=== PATIENT | male | born 1975 | race Caucasian/White ===

== ENCOUNTER 2023-06-09 15:09 | Emergency (ER) | payer BC, OTHER ==
[~2023-06-09] VITALS: Ht 167.6 cm; Wt 90.9 kg
[2023-06-09 15:37] LABS: Basophils # (auto) 0.1 10 ^3/uL (0-0.2); Basophils % (auto) 0.8 % (0.0-2.0); Eosinophils # (auto) 0.1 10 ^3/uL (0-0.8); Hematocrit 51.5 % (41.0-53.0); Hemoglobin 17.2 g/dL (13.5-17.5); Lymphocytes # (auto) 1.8 10 ^3/uL (0.4-5.4); Lymphocytes % (auto) 26.7 % (10.0-50.0); Mean Corpuscular Hgb Conc. 33.4 g/dL (32.0-36.0); Monocytes # (auto) 0.8 10 ^3/uL (0-1.3); Monocytes % (auto) 12.5 % (0.0-12.0); Nucleated Red Blood Cells % 0.3 %; Red Blood Cells 5.92 10^6/uL (4.5-5.90); Red Cell Distribution Width 14.9 % (11.8-14.3); White Blood Cell 6.7 10^3/uL (4.4-10.8)
[2023-06-09 15:46] LABS: Chloride 104 mmol/L (98-107); Potassium 2.9 mmol/L (3.5-5.1); Sodium 139 mmol/L (136-145)
[2023-06-09 15:47] LABS: Anion Gap 19 (5-15); Calcium 8.9 mg/dL (8.5-10.1); Carbon Dioxide 16 mmol/L (20-30)
[2023-06-09 15:48] VITALS: PULSE 117; RESP 18; O2SAT 95
[2023-06-09 15:52] LABS: BUN/Creatinine Ratio 5.8 (10.0-20.0); Blood Alcohol < 3.0 mg/dL (<10); Blood Urea Nitrogen 9 mg/dL (9-23); Glucose 90 mg/dL (74-106)
[2023-06-09] MEDS: POTASSIUM CHL 20 Meq TABLET PO ONE ×2 (16:13→17:13)
[2023-06-09] MEDS: SODIUM CHLORIDE 0.9% 1,000 ML IV ONE (16:33)
[2023-06-09 17:33] LABS: Urine Bacteria NONE SEEN /hpf (None Seen); Urine Blood Negative /uL (Negative); Urine Clarity HAZY (Clear); Urine Color Yellow (Yellow); Urine Mucus FEW (None Seen); Urine Protein, UAD 1+ (Negative); Urine Specific Gravity 1.018 (1.001-1.035); Urine Urobilinogen Normal (Negative); Urine WBC 3 /hpf (0 - 3)
[2023-06-09 17:40] LABS: Amphetamine Screen, Urine Neg (NEGATIVE); Barbiturate Scree,Urine Neg (NEGATIVE); Benzodiazephine Screen, Urine Neg (NEGATIVE)
[2023-06-09 17:41] LABS: Cannabinoid Screen, Urine Neg (NEGATIVE); Cocaine Screen, Urine Neg (NEGATIVE); Opiate Scree,Urine Neg (NEGATIVE); Phencyclidine Screen, Urine Neg (NEGATIVE)
[2023-06-09 18:00] VITALS: BP 107/53; PULSE 102; RESP 18; TEMP 98.3; O2SAT 97
== END 2023-06-09 18:15 | disposition home or self-care (01) ==
LOC: ER 15:09 → EDBD 15:09 → ER 18:12
DX: S00.512A Abrasion of oral cavity, initial encounter (principal); R56.9 Unspecified convulsions; X58.XXXA Exposure to other specified factors, initial encounter; Y93.89 Activity, other specified; Y92.89 Other specified places as the place of occurrence of the external cause; Y99.8 Other external cause status
CPT/HCPCS: 36415; 70450; 80048; 80307; 80320; 81001; 82962; 85025; 93005; 96360; 99285; J7030

== ENCOUNTER 2024-07-05 21:35 | Emergency (ER) | payer BC ==
[~2024-07-05] VITALS: Ht 167.6 cm; Wt 84.8 kg
--- NOTE | 2024-07-05 22:34 | DVH ---
CLINICAL INDICATION: PAIN/INJURY TECHNIQUE: 2 radiographic views of the left clavicle were obtained. Comparison: None FINDINGS/IMPRESSION: There is no evidence of acute fracture or dislocation. Elevation of the distal clavicle in relation to the acromion process suggests grade 3 AC joint separa tion. There is no acute fractures The visualized joint space is well maintained. The alignment is anatomical. There is no radiopaque foreign body. HS:Y
--- NOTE | 2024-07-05 22:37 | DVH ---
CLINICAL INDICATION: PAIN/SP FALL TECHNIQUE: XY L SHOULDER 2+ VIEW XRAY (left) Comparison: None FINDINGS/IMPRESSION: There is no evidence of acute fracture or dislocation. The left distal clavicle is elevated by approximately 1.3 cm relative to the acromion, possibly refle cting ligamentous injury.
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
[2024-07-05] MEDS ORDERED: TIZA-142 PO (22:47)
[2024-07-05] MEDS ORDERED: IBUP-1456 PO (22:47)
[2024-07-05 23:02] VITALS: BP 130/88; TEMP 98.7
[2024-07-05 23:07] VITALS: PULSE 98; RESP 19; O2SAT 97
[2024-07-05] MEDS: KETOROLAC TROMETH 60MG/2ML VIAL IM ONE (23:12)
== END 2024-07-05 23:09 | disposition home or self-care (01) ==
LOC: ER 21:35
DX: S43.102A Unspecified dislocation of left acromioclavicular joint, initial encounter (principal); W18.39XA Other fall on same level, initial encounter; Y93.I9 Activity, other involving external motion; Y92.488 Other paved roadways as the place of occurrence of the external cause; Y99.8 Other external cause status
CPT/HCPCS: 73000; 73030; 96372; 99284; J1885